=== PATIENT | male | born 1970 | race Caucasian/White ===

== ENCOUNTER → 2024-05-24 11:23 | Outpatient (BNVA) | payer OTHER, SELFPAY | PROVIDERS: Visit Provider Physician Assistant | DX: S05.01XA Injury of conjunctiva and corneal abrasion without foreign body, right eye, initial encounter (principal); S05.02XA Injury of conjunctiva and corneal abrasion without foreign body, left eye, initial encounter; Z77.098 Contact with and (suspected) exposure to other hazardous, chiefly nonmedicinal, chemicals; Z57.5 Occupational exposure to toxic agents in other industries | CPT/HCPCS: 92002; 99204 ==

== ENCOUNTER → 2024-05-29 12:59 | Outpatient (BNVA) | payer OTHER, SELFPAY | PROVIDERS: Visit Provider Physician Assistant Medical | DX: S05.01XA Injury of conjunctiva and corneal abrasion without foreign body, right eye, initial encounter (principal); S05.02XA Injury of conjunctiva and corneal abrasion without foreign body, left eye, initial encounter; T65.891A Toxic effect of other specified substances, accidental (unintentional), initial encounter; R20.8 Other disturbances of skin sensation | CPT/HCPCS: 99213 ==